=== PATIENT | male | born 1960 | race Caucasian/White ===

== ENCOUNTER 2016-03-06 05:50 | Day surgery (SDC) | payer BC ==
[~2016-03-06] VITALS: Ht 170.2 cm; Wt 88.5 kg
[~2016-03-06 05:50] MED LIST: NO MEDS
[2016-03-06] MEDS ORDERED: HYDR-906 PO (06:53)
[2016-03-06] MEDS ORDERED: SIMV10TA76 PO (06:53)
[2016-03-06] MEDS ORDERED: ASP81 PO (06:53)
[2016-03-06 06:59] VITALS: Ht 170.2 cm; Wt 88.5 kg
[2016-03-06 07:25] VITALS: BP 128/81; PULSE 70; RESP 18
[2016-03-06] MEDS ORDERED: MIDAZOLAM 1 MG/ML 2 ML INJ ONE ×2 (07:47)
[2016-03-06] MEDS ORDERED: FENTAnyl 50 MCG/ML VIAL ONE (07:47)
[2016-03-06 08:05] VITALS: BP 105/61; PULSE 72; RESP 18
--- NOTE | 2016-03-06 17:34 | GILP ---
DATE OF PROCEDURE: NAME OF PROCEDURES: Esophagogastroduodenoscopy with biopsy. SURGEON: Nandini Olvera MD PREOPERATIVE DIAGNOSES: 1. Abdominal pain. 2. Chronic heartburn. POSTOPERATIVE DIAGNOSES: 1. Gastroesophageal reflux disease. 2. Gastritis. 3. Gastric mucosal biopsies were taken for Helicobacter pylori test. INDICATION FOR THE PROCEDURE: Mr. Breanna House is 56-year-old male patient who had upper abdomin al pain and chronic heartburn, not responding to therapy. The patient was scheduled for endoscopic examination for further evaluation. The procedure and possible complications were well explained to the patient. The patient understood and consented to the procedure. DESCRIPTION OF PROCEDURE: Under the influence of fentanyl and Versed, the gastroscope was carefully introduced into the esophagus and under direct vision, it was advanced to the stomach and through t he pylorus into the duodenal bulb and descending duodenum. FINDINGS: ESOPHAGUS: The patient had gastroesophageal reflux disease. STOMACH: He had gastritis with erosions. Gastric mucosal biopsies were taken for H. pylori test. DUODENUM: Normal. He tolerated the procedure very well and there was no complication from the procedure. At the end o f the procedure, he was awake with stable vital signs and he was discharged home to the care of his family. IMPRESSION: Please see postoperative diagnoses. PLAN: 1. Nexium 24-hour p.o. q.a.m. 2. Zantac 300 mg p.o. at bedtime. 3. Await H. pylori test report. Dictated By: NANDINI TOMAS/ERIC Conf#: [id number] DID#: [id number]
== END 2016-03-06 09:28 | disposition home or self-care (01) ==
LOC: GIL 05:50
PROVIDERS: ATTEND Internal Medicine Gastroenterology
DX: K21.9 Gastro-esophageal reflux disease without esophagitis (principal); K29.70 Gastritis, unspecified, without bleeding
CPT/HCPCS: 43239; 87081; J2250; J3010; Z7610